=== PATIENT | male | born 1990 | race American Indian/Alaskan Native ===

== ENCOUNTER 2017-04-30 11:23 | Emergency (ER) | payer SELFPAY ==
[2017-04-30 11:40] VITALS: BP 123/80
== END 2017-04-30 16:10 | disposition left against medical advice (07) ==
LOC: ED 11:23
DX: H92.02 Otalgia, left ear (principal); Z53.21 Procedure and treatment not carried out due to patient leaving prior to being seen by health care provider

== ENCOUNTER 2017-04-30 23:58 | Emergency (ER) | payer SELFPAY ==
[2017-05-01] MEDS ORDERED: TORADOL IM ONE (04:45)
[2017-05-01] MEDS ORDERED: PHENERGAN/CODEINE 6.25-10 MG/5ML PO ONE (04:45)
--- NOTE | 2017-05-01 05:05 | XRay Report ---
FINAL REPORT EXAM: XR CHEST ROUTINE 2V HISTORY: non productive cough TECHNIQUE: PA and lateral chest radiographs PRIORS: None. FINDINGS: No mediastinal shift. Cardiac silhouette is not enlarged. No pneumothorax, effusion, or focal pulmonary opacity. No acute skeletal finding. IMPRESSION: No focal pulmonary opacity.
[2017-05-01] MEDS ORDERED: HYDROGEN PEROXIDE ONE (05:07)
[2017-05-01] MEDS ORDERED: DUONEB *Not for PRN Use IH ONE (05:45)
--- NOTE | 2017-05-01 06:37 | Emergency Department Report ---
Earache (Pediatric) - [facility] Chief Complaint: Earache Stated Complaint: LEFT EAR PAIN ED Review of Systems ROS: Stated complaint: LEFT EAR PAIN Other details as noted in HPI Peds Earache exam - Exam General: Vital signs noted. No distress. Alert and acting appropriately. Neurologic: Alert and oriented, no deficits. Musculoskeletal: Unremarkable. ED Course Vital Signs 05/01/17 05/01/17 05/01/17 00:05 05:31 06:01 Temperature 97.7 F Pulse Rate 57 L Respiratory 18 18 18 Rate Blood Pressure 122/78 [Right] O2 Sat by Pulse 100 Oximetry Critical care attestation.: If time is entered above; I have spent that time in minutes in the direct care of this critically ill patient, excluding procedure time. ED Disposition Disposition: DC- TO HOME OR SELFCARE Condition: Stable Instructions: Acute Bronchitis (ED) Prescriptions: ALBUTEROL Inhaler [Proair] 1 puff IH TID PRN #1 inha PRN Reason: Shortness Of Breath Meloxicam 7.5 mg PO QAM #7 tablet methylPREDNISolone [Medrol] 4 mg PO QAM #1 tab.ds.pk Referrals: PRIMARY CARE, [Primary Care Provider] - 3-5 Days Forms: Work/School Release Form(ED)
[2017-05-01 06:47] VITALS: BP 120/78
== END 2017-05-01 06:44 | disposition home or self-care (01) ==
LOC: ED 23:58
DX: H92.02 Otalgia, left ear (principal)
CPT/HCPCS: 71020; 96372; 99283; J1885

== ENCOUNTER 2019-08-13 17:28 | Emergency (ER) | payer SELFPAY ==
[2019-08-13] MEDS ORDERED: IPRATROPIUM 0.02% NEBU 2.5 ML IH ONE (17:35)
[2019-08-13] MEDS ORDERED: ALBUTEROL 2.5 MG/3 ML NEBU IH ONE (17:35)
[2019-08-13] MEDS ORDERED: MAGNESIUM SULFATE 2 GM/50 ML BAG IV ONE (17:35)
--- NOTE | 2019-08-13 17:39 | Emergency Department Report ---
ED Shortness of Breath HPI - General Stated Complaint: AUDREY Time Seen by Provider: 08/13/19 17:33 Source: patient - History of Present Illness Initial Comments: 28-year-old male presents to the ED with shortness of breath. Patient reported he has had URI symptoms over the last 3 weeks. Reports he was released from [facility] at the end of June. Patient reports dry cough, nonproductive. He also reported subjective fever, night sweats. He denies hemoptysis. Patient denies any history of TB in the past. EMS reports room air sats of 90%. Albuterol and solumedrol 125 mg given. MD Complaint: shortness of breath, cough -: week(s) (3) Severity: moderate Consistency: constant Improves With: nothing Worsens With: nothing Context: recent URI Associated Symptoms: fever, cough Treatments Prior to Arrival: bronchodilator - Related Data Home Oxygen Therapy: No Previous Rx's Medication Instructions Recorded Last Taken Type Albuterol Sulfate [Proventil Hfa] 2 puff IH Q4HR PRN #1 hfa.aer.ad 08/13/19 Unknown Rx Benzonatate [Tessalon Perles] 100 mg PO Q8HR PRN #20 capsule 08/13/19 Unknown Rx predniSONE [Deltasone] 50 mg PO QDAY #5 tab 08/13/19 Unknown Rx Allergies Allergy/AdvReac Type Severity Reaction Status Date / Time seafood AdvReac Swelling Uncoded 04/30/17 11:40 ED Review of Systems ROS: Stated complaint: AUDREY Other details as noted in HPI Comment: All other systems reviewed and negative Constitutional: chills, fever Respiratory: cough, shortness of breath, wheezing, other (denies hemoptysis) Cardiovascular: denies: chest pain Musculoskeletal: other (denies leg pain or swelling) ED Past Medical Hx - Social History Smoking Status: Never Smoker Substance Use Type: None - Medications Home Medications: Home Medications Medication Instructions Recorded Confirmed Last Taken Type Albuterol Sulfate [Proventil Hfa] 2 puff IH Q4HR PRN #1 hfa.aer.ad 08/13/19 Unknown Rx Benzonatate [Tessalon Perles] 100 mg PO Q8HR PRN #20 capsule 08/13/19 Unknown Rx predniSONE [Deltasone] 50 mg PO QDAY #5 tab 08/13/19 Unknown Rx ED Physical Exam - General General appearance: alert - Head Head exam: Present: atraumatic, normocephalic - Eye Eye exam: Present: normal appearance, EOMI - ENT ENT exam: Present: mucous membranes moist - Neck Neck exam: Present: normal inspection - Respiratory Respiratory exam: Present: respiratory distress, wheezes (throughout) - Cardiovascular Cardiovascular Exam: Present: regular rate, normal rhythm - GI/Abdominal GI/Abdominal exam: Present: soft. Absent: distended, tenderness - Extremities Exam Extremities exam: Present: normal inspection - Neurological Exam Neurological exam: Present: alert, oriented X3 - Psychiatric Psychiatric exam: Present: normal affect, normal mood - Skin Skin exam: Present: warm, dry, intact, normal color. Absent: rash ED Course Vital Signs 08/13/19 08/13/19 08/13/19 17:28 17:41 18:21 Temperature 98.3 F Pulse Rate 70 73 Pulse Rate [ 74 Anterior Bilateral Throughout] Respiratory 16 16 Rate Respiratory 18 Rate [Anterior Bilateral Throughout] Blood Pressure 143/91 Blood Pressure 122/83 [Left] O2 Sat by Pulse 99 100 Oximetry 08/13/19 08/13/19 08/13/19 19:15 19:26 20:25 Temperature Pulse Rate 79 80 Pulse Rate [ Anterior Bilateral Throughout] Respiratory 14 14 18 Rate Respiratory Rate [Anterior Bilateral Throughout] Blood Pressure Blood Pressure 118/78 124/73 [Left] O2 Sat by Pulse 99 99 99 Oximetry - Reevaluation(s) Reevaluation #1: 08/13/19 20:10 Pt feeling much better. Asleep on stretcher. Wheezes resolved. O2 sats normal on room air. Feels comfortable w/ discharge home. ED Medical Decision Making - Lab Data Result diagrams: 08/13/19 18:59 08/13/19 18:59 - Radiology Data Radiology results: report reviewed, image reviewed - Medical Decision Making 28 yo M w/ acute bronchitis. Coarse wheezing throughout upon initial presentation. Albuterol/ atrovent nebs, mag sulfate bolus given here in ED. Pt received solumedrol form EMS. Pt reported recent incarceration, fever, night sweats. However, CXR negative for infiltrate. WBCs normal, pt is afebrile. Following treatment, pt much improved. O2 sats normal. Fells comfortable w/ discharge home, mother at bedside. Prescriptions given. Outpt f/u advised. Return precautions given. - Differential Diagnosis bronchitis, pneumonia, pulm edema Critical care attestation.: If time is entered above; I have spent that time in minutes in the direct care of this critically ill patient, excluding procedure time. ED Disposition Clinical Impression: Acute bronchitis Disposition: TO HOME OR SELFCARE Is pt being admited?: No Condition: Stable Instructions: Acute Bronchitis (ED) Prescriptions: predniSONE [Deltasone] 50 mg PO QDAY #5 tab Albuterol Sulfate [Proventil Hfa] 2 puff IH Q4HR PRN #1 hfa.aer.ad PRN Reason: Wheezing Benzonatate [Tessalon Perles] 100 mg PO Q8HR PRN #20 capsule PRN Reason: Cough Referrals: PRIMARY CARE, [Primary Care Provider] - 3-5 Days [facility] [Provider Group] - 3-5 Days [facility] [Outside] - 3-5 Days Time of Disposition: 20:11
--- NOTE | 2019-08-13 19:06 | XRay Report ---
CHEST 1 VIEW INDICATION / CLINICAL INFORMATION: cough, sob. COMPARISON: 05/01/2017 FINDINGS: SUPPORT DEVICES: None. HEART / MEDIASTINUM: No significant abnormality. LUNGS / PLEURA: No significant pulmonary or pleural abnormality. No pneumothorax. ADDITIONAL FINDINGS: No significant additional findings. IMPRESSION: 1. No significant change Signer Name: Jose Manuel Davis MD Signed: 08/13/2019 7:02 PM Workstation Name: [id number]
[2019-08-13 19:21] LABS: Hematocrit 42.3 % (35.5-45.6); Hemoglobin 14.4 gm/dl (11.8-15.2); Mean Corpuscular Volume 90 fl (84-94); Red Blood Count 4.68 M/mm3 (3.65-5.03)
[2019-08-13 19:22] LABS: Basophils % (Auto) 0.4 % (0.0-1.8); Eosinophils % (Auto) 2.7 % (0.0-4.3); Lymphocytes % (Auto) 14.5 % (13.4-35.0); Mean Corpuscular HGB Conc 34 % (32-34); Monocytes % (Auto) 3.2 % (0.0-7.3); Platelet Count 302 K/mm3 (140-440); Red Cell Distribution Width 13.1 % (13.2-15.2)
[2019-08-13 19:23] LABS: Eosinophils # (Auto) 0.2 K/mm3 (0.0-0.4); Lymphocytes # (Auto) 0.9 K/mm3 (1.2-5.4); Monocytes # (Auto) 0.2 K/mm3 (0.0-0.8)
[2019-08-13 19:33] LABS: BUN/Creatinine Ratio 10; Blood Urea Nitrogen 12 mg/dL (9-20); Calcium 8.9 mg/dL (8.4-10.2); Hemolysis Index 22
[2019-08-13 20:34] VITALS: BP 124/73
== END 2019-08-13 20:25 | disposition home or self-care (01) ==
LOC: ED 17:28
DX: J20.9 Acute bronchitis, unspecified (principal); Z79.899 Other long term (current) drug therapy; Z91.013 Allergy to seafood
CPT/HCPCS: 36415; 71045; 80048; 85025; 94640; 96365; 99284; J3475; 94644

== ENCOUNTER 2020-10-05 18:15 | Emergency (ER) | payer SELFPAY ==
--- NOTE | 2020-10-05 18:46 | Event Note ---
ED Screening Note ED Screening Note: COUGH CONGESTION CHILLS This initial assessment/diagnostic orders/clinical plan/treatment(s) is/are subject to change based on patients health status, clinical progression and re- assessment by fellow clinical providers in the ED. Further treatment and workup at subsequent clinical providers discretion. Patient/guardian urged not to elope from the ED as their condition may be serious if not clinically assessed and managed. Initial orders include: PUI
--- NOTE | 2020-10-05 19:10 | XRay Report ---
CHEST 2 VIEWS INDICATION / CLINICAL INFORMATION: COUGH. COMPARISON: 08/13/2019 FINDINGS: SUPPORT DEVICES: None. HEART / MEDIASTINUM: No significant abnormality. LUNGS / PLEURA: No significant pulmonary or pleural abnormality. No pneumothorax. ADDITIONAL FINDINGS: No significant additional findings. IMPRESSION: 1. No acute findings. Signer Name: Shankar Acosta MD Signed: 10/05/2020 7:06 PM Workstation Name: [id number]
[2020-10-05] MEDS ORDERED: methylPREDNISolone Sod Succinate 125 MG/2 ML INJ IV ONE (20:07)
[2020-10-05] MEDS ORDERED: IPRATROPIUM/ALBUTEROL SULFATE 3 ML AMPUL.NEB IH ONE (20:07)
[2020-10-05] MEDS ORDERED: ALBUTEROL 2.5 MG/3 ML NEBU IH ONE ×2 (20:07→22:06)
[2020-10-05] MEDS ORDERED: ASPIRIN 325 MG TAB PO ONE (20:08)
--- NOTE | 2020-10-05 20:13 | Emergency Department Report ---
ED Chest Pain HPI - General Chief Complaint: Chest Pain Stated Complaint: SOB/CHEST/BACK PAIN Time Seen by Provider: 10/05/20 18:45 Source: patient Mode of arrival: Ambulatory Limitations: No Limitations - History of Present Illness Initial Comments: Patient is a 29-year-old -[place] male with no past medical history presents to the ED with complaint of acute onset persistent shortness of breath, wheezing, chest tightness for the last 2 days, worse in the last 12 hours. Patient states the symptoms have been constant and worse with any exertion or movement. Patient states that he did not take medications prior to arrival in the ED and that there is no one else at home or at work with similar symptoms. Patient denies fever, chills, nausea, vomiting, diarrhea, dizziness, syncope, palpitations, neck pain, sore throat, nasal and sinus congestion, change in vision, abdominal pain or traumatic injury or fall and heavy lifting. MD Complaint: chest pain (Chest tightness), other (Shortness of breath) -: Sudden, days(s) (2) Onset: during rest Pain Location: left chest Pain Radiation: none Severity: severe Severity scale (0 -10): 8 Quality: tightness, pressure, squeezing Improves With: nothing Worsens With: exertion re: dyspnea. denies: nausea, vomting, diaphoresis, sense of impending doom Other Symptoms: denies: cough, fever, syncope, rash, acid taste in mouth, leg swelling, burping Treatments Prior to Arrival: none Aspirin use within the Past 7 Days: (0) No - Related Data On Oral Contraceptives: No Previous Rx's Medication Instructions Recorded Last Taken Type Albuterol Sulfate [Proventil Hfa] 2 puff IH Q4HR PRN #1 hfa.aer.ad 08/13/19 Unknown Rx Benzonatate [Tessalon Perles] 100 mg PO Q8HR PRN #20 capsule 08/13/19 Unknown Rx predniSONE [Deltasone] 50 mg PO QDAY #5 tab 08/13/19 Unknown Rx Albuterol Sulfate [Proventil Hfa] 1 - 2 puff IH Q6H PRN #1 hfa.aer.ad 10/05/20 Unknown Rx Benzonatate [Tessalon Perles] 100 mg PO Q8HR #30 capsule 10/05/20 Unknown Rx Cetirizine HCl [Zyrtec 10mg tab] 10 mg PO DAILY #30 tablet 10/05/20 Unknown Rx methylPREDNISolone [Medrol 4MG 4 mg PO DAILY #21 tab.ds.pk 10/05/20 Unknown Rx DOSEPAK (21 tabs)] Allergies Allergy/AdvReac Type Severity Reaction Status Date / Time seafood AdvReac Swelling Uncoded 04/30/17 11:40 Heart Score - HEART Score History: Slightly suspicious EKG: Normal Age: < 45 Risk factors: No known risk factors Troponin: < normal limit HEART Score: 0 - Critical Actions Critical Actions: 0-3 pts:0.9-1.7%risk of adverse cardiac event.Candidate for discharge ED Review of Systems ROS: Stated complaint: SOB/CHEST/BACK PAIN Other details as noted in HPI Constitutional: denies: chills, fever Eyes: denies: eye pain, eye discharge, vision change ENT: denies: ear pain, throat pain Respiratory: shortness of breath, SOB with exertion, wheezing. denies: cough Cardiovascular: chest pain (Chest tightness), dyspnea on exertion. denies: palpitations Endocrine: no symptoms reported Gastrointestinal: denies: abdominal pain, nausea, vomiting, diarrhea Genitourinary: denies: urgency, dysuria Musculoskeletal: denies: back pain, joint swelling, arthralgia Skin: denies: rash, lesions Neurological: denies: headache, weakness, paresthesias Psychiatric: denies: anxiety, depression Hematological/Lymphatic: denies: easy bleeding, easy bruising ED Past Medical Hx - Past Medical History Previous Medical History?: No Additional medical history: None - Surgical History Past Surgical History?: No - Social History Smoking Status: Never Smoker Substance Use Type: Alcohol - Medications Home Medications: Home Medications Medication Instructions Recorded Confirmed Last Taken Type Albuterol Sulfate [Proventil Hfa] 2 puff IH Q4HR PRN #1 hfa.aer.ad 08/13/19 Unknown Rx Benzonatate [Tessalon Perles] 100 mg PO Q8HR PRN #20 capsule 08/13/19 Unknown Rx predniSONE [Deltasone] 50 mg PO QDAY #5 tab 08/13/19 Unknown Rx Albuterol Sulfate [Proventil Hfa] 1 - 2 puff IH Q6H PRN #1 hfa.aer.ad 10/05/20 Unknown Rx Benzonatate [Tessalon Perles] 100 mg PO Q8HR #30 capsule 10/05/20 Unknown Rx Cetirizine HCl [Zyrtec 10mg tab] 10 mg PO DAILY #30 tablet 10/05/20 Unknown Rx methylPREDNISolone [Medrol 4MG 4 mg PO DAILY #21 tab.ds.pk 10/05/20 Unknown Rx DOSEPAK (21 tabs)] ED Physical Exam - General Limitations: No Limitations General appearance: alert, in no apparent distress - Head Head exam: Present: atraumatic, normocephalic, normal inspection - Eye Eye exam: Present: normal appearance, PERRL, EOMI Pupils: Present: normal accommodation - ENT ENT exam: Present: normal exam, normal orophraynx, mucous membranes moist, TM's normal bilaterally, normal external ear exam - Neck Neck exam: Present: normal inspection, full ROM - Respiratory Respiratory exam: Present: wheezes (Diffuse coarse wheezes throughout), accessory muscle use. Absent: respiratory distress, rales, rhonchi, stridor, chest wall tenderness, decreased breath sounds, prolonged expiratory - Cardiovascular Cardiovascular Exam: Present: regular rate, normal rhythm, normal heart sounds. Absent: systolic murmur, diastolic murmur, rubs, gallop - GI/Abdominal GI/Abdominal exam: Present: soft, normal bowel sounds. Absent: tenderness, guarding, rebound, hyperactive bowel sounds, hypoactive bowel sounds, organomegaly - Extremities Exam Extremities exam: Present: normal inspection, full ROM, normal capillary refill - Back Exam Back exam: Present: normal inspection. Absent: full ROM, tenderness, CVA tenderness (R), CVA tenderness (L), muscle spasm, paraspinal tenderness, vertebral tenderness - Neurological Exam Neurological exam: Present: alert, oriented X3, CN II-XII intact, normal gait, reflexes normal - Psychiatric Psychiatric exam: Present: normal affect, normal mood - Skin Skin exam: Present: warm, dry, intact, normal color. Absent: rash ED Course Vital Signs 10/05/20 10/05/20 10/05/20 18:49 20:40 21:33 Temperature 97.6 F Pulse Rate 82 Pulse Rate [ 90 Anterior Bilateral Throughout] Respiratory 20 16 Rate Respiratory 18 Rate [Anterior Bilateral Throughout] Blood Pressure 127/101 [Right] O2 Sat by Pulse 97 Oximetry 10/05/20 10/05/20 10/05/20 21:37 22:36 23:25 Temperature Pulse Rate 78 82 Pulse Rate [ 87 Anterior Bilateral Throughout] Respiratory 14 12 Rate Respiratory 20 Rate [Anterior Bilateral Throughout] Blood Pressure 131/86 135/74 [Right] O2 Sat by Pulse 98 99 Oximetry - Reevaluation(s) Reevaluation #1: 10/05/20 23:44 On reevaluation, patient's vital signs are stable, with oxygen saturation of 98% in room air. Patient wheezing resolved with treatment. Patient shall be discharged home with prescriptions of albuterol inhaler and Medrol Dosepak and advised to follow-up with his primary care physician in 2 to 3 days for reevaluation. TYLOR score - Tylor Score Age > 65: (0) No Aspirin use within the Past 7 Days: (0) No 3 or more CAD Risk Factors: (0) No 2 or more Angina events in past 24 hrs: (0) No Known CAD with more than 50% Stenosis: (0) No Elevated Cardiac Markers: (0) No ST Deviation Greater than 0.5mm: (0) No TYLOR Score: 0 ED Medical Decision Making - Lab Data Result diagrams: 10/05/20 20:15 10/05/20 20:15 - EKG Data EKG shows normal: sinus rhythm Rate: normal - EKG Data Interpretation: normal EKG 10/06/20 00:14 EKG shows normal sinus rhythm with a ventricular rate of 79 bpm, no ST or T wave abnormalities. - Radiology Data Radiology results: report reviewed, [place] [address] XRay Report Signed Patient: ISABEL HALL MR#: [id number] : 1990 Acct:[id number] Age/Sex: 29 / M ADM Date: 10/05/20 Loc: ED Attending Dr: Ordering Physician: CLAUDIA BREWER Date of Service: 10/05/20 Procedure(s): XR chest routine 2V Accession Number(s): [id number] cc: CLAUDIA BREWER Fluoro Time In Minutes: CHEST 2 VIEWS INDICATION / CLINICAL INFORMATION: COUGH. COMPARISON: 08/13/2019 FINDINGS: SUPPORT DEVICES: None. HEART / MEDIASTINUM: No significant abnormality. LUNGS / PLEURA: No significant pulmonary or pleural abnormality. No pneumothorax. ADDITIONAL FINDINGS: No significant additional findings. IMPRESSION: 1. No acute findings. Signer Name: Kiki Acosta MD Signed: 10/05/2020 7:06 PM Workstation Name: [id number] Transcribed By: Dictated By: KIKI ACOSTA III Electronically Authenticated By: KIKI ACOSTA III Signed Date/Time: 10/05/201905 DD/ 04 TD/TT: Print Cancel - Medical Decision Making This is a 29-year-old -[place] male with no past medical history presents to the ED with complaint of acute onset persistent shortness of breath, wheezing, chest tightness for the last 2 days, worse in the last 12 hours. Patient states the symptoms have been constant and worse with any exertion or movement. Patient states that he did not take medications prior to arrival in [facility] ED and that there is no one else at home or at work with similar symptoms. In the ED, patient is alert and oriented x3 and is not in distress with stable vital signs. Patient received DuoNeb and albuterol nebulizer treatment in the ED. chest x-ray shows no acute cardiopulmonary abnormalities or pneumonitis. EKG shows normal sinus rhythm with a ventricular rate of [address] or T wave abnormalities. Lab test results were reviewed and are all nonactionable. Patient's heart score is 0 and is PERC negative per Wells criteria. Patient symptoms are due to acute reactive airway disease which was adequately treated in the ED. On reevaluation, patient's vital signs are stable with oxygen saturation ranging between 98% in room air 100% in room air. Patient personally stated that he was feeling much better than when he got to the ED and that had his chest tightness and pain have resolved. Patient was therefore discharged home on prescriptions of albuterol inhaler, Medrol Dosepak and Zyrtec and was advised to follow-up with his primary care physician in 5 to 7 days for reevalua tion. Patient was advised return to the ED immediately if symptoms get worse. - Differential Diagnosis Asthma; bronchitis; reactive airway disease; ACS; pneumonia; URI Critical care attestation.: If time is entered above; I have spent that time in minutes in the direct care of this critically ill patient, excluding procedure time. ED Disposition Clinical Impression: Chest tightness, Shortness of breath Reactive airway disease with wheezing Qualifiers: Asthma severity: moderate Asthma persistence: persistent Asthma complication type: with acute exacerbation Qualified Code(s): J45.41 - Moderate persistent asthma with (acute) exacerbation Disposition: TO HOME OR SELFCARE Is pt being admited?: No Does the pt Need Aspirin: No Condition: Stable Instructions: Shortness of Breath, Adult, [id number], Nonspecific Chest Pain, Adult, [id number], Asthma, Adult, [id number], How to Use a Dry Powder Inhaler, [id number] Additional Instructions: All lab test results were reviewed and are all nonactionable. Chest x-ray shows no acute cardiopulmonary abnormalities or pneumonitis. Therefore take medication with food, drink plenty of fluids and follow-up with your primary care physician in 3 to 5 days for reevaluation. Return to the ED immediately if symptoms get worse. Prescriptions: methylPREDNISolone [Medrol 4MG DOSEPAK (21 tabs)] 4 mg PO DAILY #21 tab.ds.pk Albuterol Sulfate [Proventil Hfa] 1 - 2 puff IH Q6H PRN #1 hfa.aer.ad PRN Reason: Shortness Of Breath Benzonatate [Tessalon Perles] 100 mg PO Q8HR #30 capsule Cetirizine HCl [Zyrtec 10mg tab] 10 mg PO DAILY #30 tablet Referrals: LUIS COYNE MD [Staff Physician] - 3-5 Days Time of Disposition: 23:54 Print Language: CAMBODIAN
[2020-10-05 20:29] LABS: Basophils % (Auto) 0.8 % (0.0-1.8); Eosinophils # (Auto) 0.5 K/mm3 (0.0-0.4); Eosinophils % (Auto) 8.8 % (0.0-4.3); Hematocrit 44.9 % (35.5-45.6); Hemoglobin 15.5 gm/dl (11.8-15.2); Lymphocytes # (Auto) 1.2 K/mm3 (1.2-5.4); Lymphocytes % (Auto) 22.7 % (13.4-35.0); Mean Corpuscular HGB Conc 35 % (32-34); Mean Corpuscular Volume 92 fl (84-94); Monocytes # (Auto) 0.5 K/mm3 (0.0-0.8); Monocytes % (Auto) 9.4 % (0.0-7.3); Platelet Count 254 K/mm3 (140-440); Red Blood Count 4.89 M/mm3 (3.65-5.03); Red Cell Distribution Width 13.7 % (13.2-15.2)
[2020-10-05 21:00] LABS: Alanine Aminotransferase 34 units/L (7-56); Albumin 4.7 g/dL (3.9-5); BUN/Creatinine Ratio 6; Blood Urea Nitrogen 6 mg/dL (9-20); Calcium 9.5 mg/dL (8.4-10.2); Hemolysis Index 8
[2020-10-05] MEDS ORDERED: SODIUM CHLORIDE 0.9% 1000 ML 1,000 ML IV ONE (22:06)
[2020-10-05] MEDS ORDERED: MAGNESIUM SULFATE 2 GM/50 ML BAG IV ONE (22:06)
[2020-10-05 23:27] VITALS: BP 135/74
== END 2020-10-06 00:22 | disposition home or self-care (01) ==
LOC: ED 18:15
DX: J45.998 Other asthma (principal); R07.89 Other chest pain; Z79.899 Other long term (current) drug therapy; Z91.013 Allergy to seafood
CPT/HCPCS: 36415; 71046; 80053; 83880; 84484; 85025; 93005; 94640; 96365; 96375; 99284; J2930; J3475; J7030; 94644

== ENCOUNTER 2021-09-14 02:08 | Emergency (ER) | payer SELFPAY ==
[2021-09-14 02:13] VITALS: BP 128/85
[2021-09-14] MEDS ORDERED: methylPREDNISolone Sod Succinate 125 MG/2 ML INJ IM ONE (02:13)
[2021-09-14] MEDS ORDERED: IPRATROPIUM/ALBUTEROL SULFATE 3 ML AMPUL.NEB IH ONE ×2 (02:13→03:02)
[2021-09-14] MEDS ORDERED: TERBUTALINE 1 MG/1 ML INJ SUB-Q ONE (03:38)
--- NOTE | 2021-09-14 04:13 | XRay Report ---
XR chest routine 2V INDICATION / CLINICAL INFORMATION: sob. COMPARISON: 10/05/2020 FINDINGS: SUPPORT DEVICES: None. HEART /PULMONARY VASCULATURE: No significant abnormality. LUNGS / PLEURA: No significant pulmonary or pleural abnormality. No pneumothorax. ADDITIONAL FINDINGS: No significant additional findings. IMPRESSION: 1. No acute findings. Signer Name: Jose Manuel Wolf MD Signed: 09/14/2021 4:09 AM Workstation Name: [email or web address]
--- NOTE | 2021-09-14 04:31 | Emergency Department Report ---
ED Asthma HPI - General Chief Complaint: Adult Asthma Stated Complaint: SEVERE CHEST PAIN/SOB Time Seen by Provider: 09/14/21 02:13 Source: patient Mode of arrival: Ambulatory Limitations: No Limitations - History of Present Illness Initial Comments: 30-year-old black male with a past medical history of asthma presents to the emergency department with 1 day history of worsening shortness of breath and wheezing. He states that he has used his inhaler several times today without improvement. He denies fever but has had some coughing. MD Complaint: "asthma attack", shortness of breath, wheezing -: Gradual, days(s) (1) Severity: moderate Context: none known Associated Symptoms: dry cough. denies: productive cough, fever, chest pain, hemoptysis, leg edema, syncope Treatments Prior to Arrival: inhaled bronchodilator - Related Data Current Asthma Therapy: inhaled bronchodilator Previous Rx's Medication Instructions Recorded Last Taken Type Albuterol Sulfate [Proventil Hfa] 2 puff IH Q4HR PRN #1 hfa.aer.ad 08/13/19 Unknown Rx Benzonatate [Tessalon Perles] 100 mg PO Q8HR PRN #20 capsule 08/13/19 Unknown Rx predniSONE [Deltasone] 50 mg PO QDAY #5 tab 08/13/19 Unknown Rx Albuterol Sulfate [Proventil Hfa] 1 - 2 puff IH Q6H PRN #1 hfa.aer.ad 10/05/20 Unknown Rx Benzonatate [Tessalon Perles] 100 mg PO Q8HR #30 capsule 10/05/20 Unknown Rx Cetirizine HCl [Zyrtec 10mg tab] 10 mg PO DAILY #30 tablet 10/05/20 Unknown Rx methylPREDNISolone [Medrol 4MG 4 mg PO DAILY #21 tab.ds.pk 10/05/20 Unknown Rx DOSEPAK (21 tabs)] ALBUTEROL NEB's [Proventil 0.083% 2.5 mg IH TID PRN #10 neb 09/14/21 Unknown Rx NEBS] Albuterol Mdi (or & Nicu Only) 2 puff IH QID PRN #8.5 gram 09/14/21 Unknown Rx [ProAir HFA Inhaler] guaiFENesin/CODEINE [Robitussin AC] 5 ml PO QID PRN #120 ml 09/14/21 Unknown Rx prednisoLONE [Millipred 5mg (6 day 5 mg PO QDAY 6 Days #1 pack 09/14/21 Unknown Rx 21 tab dosepak)] Allergies Allergy/AdvReac Type Severity Reaction Status Date / Time seafood AdvReac Swelling Uncoded 04/30/17 11:40 ED Review of Systems ROS: Stated complaint: SEVERE CHEST PAIN/SOB Other details as noted in HPI Comment: All other systems reviewed and negative Constitutional: denies: chills, diaphoresis, fever, malaise, weakness Eyes: denies: eye pain ENT: denies: ear pain, throat pain Respiratory: cough, shortness of breath, wheezing. denies: SOB with exertion, SOB at rest Cardiovascular: denies: chest pain, palpitations, dyspnea on exertion, orthopnea, edema, syncope, paroxysmal nocturnal dyspnea Endocrine: no symptoms reported Gastrointestinal: denies: abdominal pain, nausea, vomiting, diarrhea, constipation, hematemesis, melena, hematochezia Genitourinary: denies: urgency, dysuria, frequency Musculoskeletal: denies: back pain Skin: denies: rash, lesions Neurological: denies: headache, weakness, numbness, paresthesias, abnormal gait Psychiatric: denies: anxiety Hematological/Lymphatic: denies: easy bleeding, easy bruising ED Past Medical Hx - Past Medical History Previous Medical History?: Yes Hx Asthma: Yes Additional medical history: None - Surgical History Past Surgical History?: No - Social History Smoking Status: Never Smoker Substance Use Type: Alcohol - Medications Home Medications: Home Medications Medication Instructions Recorded Confirmed Last Taken Type Albuterol Sulfate [Proventil Hfa] 2 puff IH Q4HR PRN #1 hfa.aer.ad 08/13/19 Unknown Rx Benzonatate [Tessalon Perles] 100 mg PO Q8HR PRN #20 capsule 08/13/19 Unknown Rx predniSONE [Deltasone] 50 mg PO QDAY #5 tab 08/13/19 Unknown Rx Albuterol Sulfate [Proventil Hfa] 1 - 2 puff IH Q6H PRN #1 hfa.aer.ad 10/05/20 Unknown Rx Benzonatate [Tessalon Perles] 100 mg PO Q8HR #30 capsule 10/05/20 Unknown Rx Cetirizine HCl [Zyrtec 10mg tab] 10 mg PO DAILY #30 tablet 10/05/20 Unknown Rx methylPREDNISolone [Medrol 4MG 4 mg PO DAILY #21 tab.ds.pk 10/05/20 Unknown Rx DOSEPAK (21 tabs)] ALBUTEROL NEB's [Proventil 0.083% 2.5 mg IH TID PRN #10 neb 09/14/21 Unknown Rx NEBS] Albuterol Mdi (or & Nicu Only) 2 puff IH QID PRN #8.5 gram 09/14/21 Unknown Rx [ProAir HFA Inhaler] guaiFENesin/CODEINE [Robitussin AC] 5 ml PO QID PRN #120 ml 09/14/21 Unknown Rx prednisoLONE [Millipred 5mg (6 day 5 mg PO QDAY 6 Days #1 pack 09/14/21 Unknown Rx 21 tab dosepak)] ED Physical Exam - General Limitations: No Limitations General appearance: alert, in no apparent distress - Head Head exam: Present: atraumatic, normocephalic - Eye Eye exam: Present: normal appearance. Absent: conjunctival injection - Neck Neck exam: Present: normal inspection, full ROM. Absent: tenderness - Respiratory Respiratory exam: Present: wheezes. Absent: respiratory distress - Cardiovascular Cardiovascular Exam: Present: regular rate, normal heart sounds - GI/Abdominal GI/Abdominal exam: Present: soft, normal bowel sounds. Absent: distended, tenderness, guarding, rebound, rigid - Extremities Exam Extremities exam: Present: normal inspection, full ROM - Back Exam Back exam: Present: normal inspection. Absent: full ROM, tenderness, CVA tenderness (R), CVA tenderness (L), paraspinal tenderness, vertebral tenderness - Neurological Exam Neurological exam: Present: alert, oriented X3 - Psychiatric Psychiatric exam: Present: normal affect, normal mood - Skin Skin exam: Present: warm, dry, intact, normal color ED Course Vital Signs 09/14/21 02:11 Temperature 97.9 F Pulse Rate 81 Respiratory 18 Rate Blood Pressure 128/85 [Right] O2 Sat by Pulse 98 Oximetry - Reevaluation(s) Reevaluation #1: 09/14/21 04:26 Wheezing mostly resolved, and patient states that he feels much better. Shortness of breath much improved. ED Medical Decision Making - Radiology Data Radiology results: report reviewed, image reviewed Chest x-ray IMPRESSION: 1. No acute findings. - Medical Decision Making 30-year-old black male with a past medical history of asthma presents to the emergency department with 1 day history of worsening shortness of breath and wheezing. He states that he has used his inhaler several times today without improvement. He denies fever but has had some coughing. Shortness of breath and wheezing improved after 2 DuoNeb treatments, 125 mg of Solu-Medrol IM, and 0.25 mg of terbutaline subcu. Patient states that he feels better and wheezing and shortness of breath has improved. He will be sent home with 6-day course of prednisone to take as directed, refill of albuterol inhaler, refill of albuterol nebulizer, and Robitussin-AC to treat cough. He was advised to take medications as prescribed and follow-up with primary care provider if no improvement or worsening symptoms. He verbalized understanding of and agreement with plan of care. Critical care attestation.: If time is entered above; I have spent that time in minutes in the direct care of this critically ill patient, excluding procedure time. ED Disposition Clinical Impression: Asthma exacerbation Qualifiers: Asthma severity: moderate Asthma persistence: persistent Qualified Code(s): J45.41 - Moderate persistent asthma with (acute) exacerbation Disposition: 01 HOME / SELF CARE / HOMELESS Is pt being admited?: No Does the pt Need Aspirin: No Condition: Stable Instructions: Form - Asthma Action Plan, Adult, Asthma, Adult, [id number], Cough, Adult Additional Instructions: Take medications as prescribed. Follow-up with primary care provider if no improvement or worsening symptoms. Return to the emergency room for any concerning symptoms or shortness of breath not relieved by nebulizer or inhalers. Prescriptions: prednisoLONE [Millipred 5mg (6 day 21 tab dosepak)] 5 mg PO QDAY 6 Days #1 pack Albuterol Mdi (or & Nicu Only) [ProAir HFA Inhaler] 2 puff IH QID PRN #8.5 gram PRN Reason: Shortness Of Breath ALBUTEROL NEB's [Proventil 0.083% NEBS] 2.5 mg IH TID PRN #10 neb PRN Reason: Wheezing guaiFENesin/CODEINE [Robitussin AC] 5 ml PO QID PRN #120 ml PRN Reason: Cough Referrals: PRIMARY CARE, [Primary Care Provider] - 3-5 Days HARDEEP MATHEWS MD [Referring] - 3-5 Days Time of Disposition: 04:32
== END 2021-09-14 04:55 | disposition home or self-care (01) ==
LOC: ED 02:08
DX: J45.901 Unspecified asthma with (acute) exacerbation (principal); F10.20 Alcohol dependence, uncomplicated; Z91.013 Allergy to seafood
CPT/HCPCS: 71046; 94640; 96372; 99283; J2930